=== PATIENT | male | born 2000 | race Caucasian/White ===

== ENCOUNTER 2024-04-23 21:31 | Emergency (ER) | payer SELFPAY ==
[2024-04-23] MEDS: Lactated Ringers 1,000 ML IV ONE (22:03)
[2024-04-23] MEDS: Ondansetron 4 MG/2 ML SDV IVPUSH ONE (22:05)
[2024-04-23 22:06] LABS: APPEARANCE,URINE CLEAR (Clear); BILIRUBIN,URINE NEGATIVE (Negative); COLOR,URINE YELLOW (Yellow); GLUCOSE,URINE NEGATIVE (Negative); KETONES,URINE NEGATIVE (Negative); LEUKOCYTE ESTERASE,URINE NEGATIVE (Negative); NITRITE,URINE NEGATIVE (Negative); OCCULT BLOOD,URINE TRACE-INTACT (Negative); PROTEIN,URINE NEGATIVE (Negative)
[2024-04-23] MEDS: Sodium Chloride 0.9% 10 ML Syringe FLUSH PRN (22:06)
[2024-04-23 22:07] LABS: BASOPHILS PERCENT AUTO 0.4 % (0.0-1.0); EOSINOPHILS ABSOLUTE AUTO 0.1 K/mm3 (0.0-0.4); EOSINOPHILS PERCENT AUTO 0.6 % (0.0-6.0); HEMATOCRIT 44.5 % (42.0-52.0); IMMATURE GRAN ABSOLUTE AUTO 0.02 K/mm3 (0.00-0.05); IMMATURE GRAN PERCENT AUTO 0.2 % (0.0-0.4); LYMPHOCYTES ABSOLUTE AUTO 1.8 K/mm3 (1.0-4.8); LYMPHOCYTES PERCENT AUTO 18.5 % (24.0-44.0); MEAN CORPUSCULAR HEMOGLOBIN 29.3 pg (28.0-32.0); MEAN CORPUSCULAR HGB CONC 33.7 g/dl (32.0-36.0); MEAN CORPUSCULAR VOLUME 86.9 fl (83.0-99.0); MEAN PLATELET VOLUME 12.1 fl (9.4-12.4); MONOCYTES ABSOLUTE AUTO 1.4 K/mm3 (0.0-0.8); MONOCYTES PERCENT AUTO 14.6 % (0.0-8.0); NEUTROPHILS ABSOLUTE AUTO 6.5 K/mm3 (1.8-7.7); NEUTROPHILS PERCENT AUTO 65.7 % (41.0-71.0); PLATELET COUNT,PLT 174 K/mm3 (150-400); RED BLOOD CELL COUNT 5.12 M/mm3 (4.52-5.90); WHITE BLOOD CELL COUNT,WBC 9.83 K/mm3 (3.9-11.3)
[2024-04-23 22:14] LABS: BACTERIA,URINE OCCASIONAL /hpf (FEW); MUCUS,URINE FEW /hpf (FEW); RBC,URINE 0-5 /hpf (0-5); SQUAMOUS EPITHELIAL CELLS,UR 0-5 /hpf (0-5); WBC,URINE 0-5 /hpf (0-5)
[2024-04-23] MEDS ORDERED: Sodium Chloride 0.9% 10 ML Syringe FLUSH PRN (22:17)
[2024-04-23] MEDS: Iopamidol 612 MG/ML 100 ML Bottle IVPUSH ONE (22:17)
[2024-04-23 22:28] LABS: LACTIC ACID 0.8 mmol/L (0.4-2.0)
[2024-04-23 22:37] LABS: ALBUMIN 3.8 g/dl (3.4-5.0); ANION GAP 9.9 (5-15); BILIRUBIN TOTAL 0.5 mg/dL (0.2-1.0); C-REACTIVE PROTEIN 4.3 mg/dL (<0.30); CALCIUM 9.3 mg/dL (8.5-10.1); EST CRCL DRUG DOSING (CG) 108.61 mL/min; MAGNESIUM 1.8 mg/dL (1.8-2.4); POTASSIUM,K 3.9 mEq/L (3.5-5.1); PROTEIN TOTAL,TP 7.5 g/dl (6.4-8.2)
[2024-04-23] MEDS: Dicyclomine 10 MG Cap PO ONE (23:00)
== END 2024-04-23 23:56 | disposition home or self-care (01) ==
LOC: JD.ED 21:31
DX: A08.4 Viral intestinal infection, unspecified (principal)
CPT/HCPCS: 36415; 74177; 80053; 81001; 83605; 83690; 83735; 85025; 86140; 96360; 99284; A9270; J3490; J7120; Q9967

== ENCOUNTER 2025-07-20 19:09 | Emergency (ER) | payer SELFPAY ==
[2025-07-20 20:04] LABS: APPEARANCE,URINE CLEAR (Clear); GLUCOSE,URINE NEGATIVE (Negative); OCCULT BLOOD,URINE NEGATIVE (Negative)
[2025-07-20 20:11] LABS: EPITHELIAL CELLS,URINE 0-5 /hpf (0-5)
[2025-07-20 20:13] LABS: BUPRENORPHINE SCREEN,URINE NEGATIVE (CUTOFF=10); METHADONE SCREEN, URINE NEGATIVE (CUT0FF=200); METHAMPHETAMINES SCREEN, URINE NEGATIVE (CUTOFF=500); OXYCODONE SCREEN,URINE NEGATIVE (CUT0FF=100); THC SCREEN,URINE 20 NG/ML NEGATIVE (CUTOFF=50)
[2025-07-20 20:15] LABS: AMPHETAMINES SCREEN, URINE NEGATIVE (CUTOFF=500)
[2025-07-20 21:06] LABS: A/G RATIO 1.1 (1-2); ALANINE AMINOTRANSFERASE,ALT 37.0 U/L (16-63); ASPARTATE AMNIOTRANSFERASE,AST 21.0 U/L (15-37); BILIRUBIN TOTAL 0.4 mg/dL (0.2-1.0); BLOOD UREA NITROGEN,BUN 12.0 mg/dL (7-18); CARBON DIOXIDE,CO2 28.0 mEq/L (21-32); CHLORIDE,CL 102.0 mEq/L (98-107); CREATINE KINASE,CK 67.0 U/L (39-308); CREATININE 1.2 mg/dL (0.7-1.3); EST CRCL DRUG DOSING (CG) 96.32 mL/min; ESTIMATED GFR 86.0 mL/min (>60); GLUCOSE RANDOM 106.0 mg/dL (70-99); POTASSIUM,K 4.3 mEq/L (3.5-5.1); PROTEIN TOTAL,TP 7.0 g/dl (6.4-8.2); SODIUM,NA 139.0 mEq/L (136-145)
[2025-07-20 21:21] LABS: BASOPHILS ABSOLUTE AUTO 0.1 K/mm3 (0.0-0.2); BASOPHILS PERCENT AUTO 0.4 % (0.0-1.0); EOSINOPHILS ABSOLUTE AUTO 0.0 K/mm3 (0.0-0.4); EOSINOPHILS PERCENT AUTO 0.2 % (0.0-6.0); IMMATURE GRAN ABSOLUTE AUTO 0.02 K/mm3 (0.00-0.05); IMMATURE GRAN PERCENT AUTO 0.2 % (0.0-0.4); LYMPHOCYTES ABSOLUTE AUTO 2.5 K/mm3 (1.0-4.8); LYMPHOCYTES PERCENT AUTO 21.3 % (24.0-44.0); MEAN PLATELET VOLUME 11.9 fl (9.4-12.4); MONOCYTES ABSOLUTE AUTO 1.8 K/mm3 (0.0-0.8); MONOCYTES PERCENT AUTO 15.6 % (0.0-8.0); NEUTROPHILS ABSOLUTE AUTO 7.2 K/mm3 (1.8-7.7); NEUTROPHILS PERCENT AUTO 62.3 % (41.0-71.0); NRBC ABSOLUTE 0.00 (0.00-0.02); NRBC PERCENT 0.0 % (0.0-0.2); PLATELET COUNT,PLT 169 K/mm3 (150-400); RED BLOOD CELL COUNT 4.95 M/mm3 (4.52-5.90); WHITE BLOOD CELL COUNT,WBC 11.57 K/mm3 (3.9-11.3)
[2025-07-20] MEDS: Ondansetron 4 MG/2 ML SDV IVPUSH ONE (21:21)
[2025-07-20] MEDS: Ketorolac 60 MG/2 ML SDV IVPUSH STA (21:23)
[2025-07-21] MEDS: Ketorolac 30 MG/ML SDV ONE (11:07)
[2025-07-21] MEDS: Ondansetron 4 MG/2 ML SDV ONE (11:07)
== END 2025-07-20 22:06 | disposition home or self-care (01) ==
LOC: JD.ED 19:09
DX: R10.32 Left lower quadrant pain (principal); Z86.16 Personal history of COVID-19
CPT/HCPCS: 36415; 74176; 80053; 80306; 81001; 82550; 83690; 83735; 85025; 87086; 99284; A9270; J1885; J2405

== ENCOUNTER 2025-09-01 13:02 | Emergency (ER) | payer OTHER ==
[2025-09-01 14:31] LABS: APPEARANCE,URINE CLEAR (Clear); GLUCOSE,URINE NEGATIVE (Negative); OCCULT BLOOD,URINE NEGATIVE (Negative)
== END 2025-09-01 14:59 | disposition home or self-care (01) ==
LOC: JD.ED 13:02
DX: K59.01 Slow transit constipation (principal); Z86.16 Personal history of COVID-19
CPT/HCPCS: 74019; 74019-26; 81003; 99283; 99284